=== PATIENT | male | born 1970 | race Caucasian/White ===

== ENCOUNTER 2017-07-16 13:06 | Emergency (ER) | payer SELFPAY ==
[2017-07-16 13:16] VITALS: BP 120/83; PULSE 91; RESP 17; TEMP 98.8; O2SAT 94
--- NOTE | 2017-07-16 14:22 | EDPHY ---
HPI/HX/ROS/PE/MDM Narrative: CHIEF COMPLAINT: Left ankle pain HISTORY OF PRESENT ILLNESS: The patient is a 47 y/o male who complains of left ankle pain secondary to missing a step last night. The pain radiates up to the lateral aspect of his calf. Denies taking pain medication. Denies hitting his head or loss of consciousness. No fever, chills, chest pain, shortness of breath, palpitations, vomiting, diarrhea, urinary complaints, headache, lightheadedness. REVIEW OF SYSTEMS: Aside from elements discussed in the HPI, a comprehensive 10-point review of systems was reviewed and is negative. PAST MEDICAL HISTORY: Denies SOCIAL HISTORY: Lives in [place], smoker, works for [employer] VITAL SIGNS: Reviewed by me GENERAL: Well-developed, well-nourished, resting comfortably in no respiratory distress.. FOCUSED EXAM OF LEFT ANKLE: Swelling of lateral malleoli, ecchymosis near lateral malleoli. Minimum tenderness over medial malleoli, moderate tenderness over lateral malleoli. No deficit on Achilles tendon, normal Stewart test. Brisk capillary refill, and good pulses. . Portions of this note were transcribed by a medical education manager. I personally performed a history, physical exam, medical decision making, and confirmed accuracy of information the transcribed note. ED Course: The patient is a 47 y/o male who presents with swelling, ecchymosis, and swelling over the left lateral malleoli. 1420: Spoke with Dr. Zarate, radiologist, regarding the patients x-rays. There is no osseous injury. 1437: Reassessed patient and discussed follow up visit with Dr. Zhou, orthopedic surgeon, within the next week. I have also advised him to use a boot and crutches. Return precautions discussed; patient is comfortable with this plan. MDM: Diff dx considered included sprain, strain, fracture, open fracture, talar injury. - Data Points Imaging: Discussed imaging studies w/ call center dispatcher Radiologist, I viewed and interpreted images myself Medications Given: Discontinued Medications Ketorolac Tromethamine (Toradol) 30 mg IM EDNOW ONE Stop: 07/16/17 14:32 Last Admin: 07/16/17 14:53 Dose: 30 mg General Time Seen by Provider: 07/16/17 14:17 Initial Vital Signs: Initial Vital Signs Temperature (C) 37.1 C 07/16/17 13:13 Heart Rate 91 07/16/17 13:13 Respiratory Rate 17 07/16/17 13:13 Blood Pressure 120/83 H 07/16/17 13:13 O2 Sat (%) 94 07/16/17 13:13 O2 Delivery Mode Room Air Allergies/Adverse Reactions: Penicillins Allergy (Verified 07/16/17 13:12) opiates Allergy (Uncoded 04/15/15 23:03) Home Medications: Medication Instructions Recorded NK [No Known Home Meds] 07/16/17 Departure - Departure Disposition: Home, Routine, Self-Care Clinical Impression: Ankle sprain Condition: Good Instructions: Ankle Sprain (ED) Additional Instructions: 1. Do not take any pain relief medication until 9:00pm tonight. I recommend Ibuprofen (Motrin, Advil) or Naproxen Sodium (Aleve) for pain and anti- inflammatory effects. You may take either one, but do not take both. Your dose is: Ibuprofen 600 mg every 6-8 hours with food. OR Naproxen Sodium (Aleve) 220 mg every 12 hours. 2. Keep the boot on your ankle and use crutches until your follow up visit with Dr. Zhou. 3. Follow up with Dr. Zhou, orthopedic surgeon, in the next week for your symptoms. 4. Return to the ED if you experience fever, redness, numbness, weakness or worsening of your symptoms. Referrals: Micheal Zhou MD [Medical Doctor] - As per Instructions Report Scribed for: Marlene Montano Report Scribed by: Mary Littlejohn Date of Report: 07/16/17 Time of Report: 14:20
[2017-07-16] MEDS ORDERED: KETOROLAC 30 MG/1 ML SDV IM ONE (14:31)
== END 2017-07-16 15:04 | disposition home or self-care (01) ==
DX: S93.402A Sprain of unspecified ligament of left ankle, initial encounter (principal); F17.200 Nicotine dependence, unspecified, uncomplicated; X50.9XXA Other and unspecified overexertion or strenuous movements or postures, initial encounter
CPT/HCPCS: J1885; L4386